=== PATIENT | female | born 1980 | race Caucasian/White ===

== ENCOUNTER 2017-01-29 02:10 | Emergency (ER) | payer OTHER ==
[2017-01-29] MEDS ORDERED: PANTOPRAZOLE SODIUM 40 MG in SODIUM CHLORIDE 100 ML IVPB ONE (02:23)
--- NOTE | 2017-01-29 02:23 | PDOC ---
[id number]: No Limitations - History of Present Illness Initial Comments: 01/29/17 02:31 The patient is a 36 year old female with no significant past medical history, who presents to the emergency department today for further evaluation of abdominal pain for one hour. The patient states that the pain developed while going to bed. The patient describes the pain as share and a 10/10 in severity. The patient states that the pain begins in her mid epigastric region and radiates to her left upper quadrant wrapping around to her back. The patient notes that she has experienced this pain once before but did not follow up with a doctor to have it evaluated. <Yasmani Murguia - Last Filed: 01/29/17 02:38> - General History Source: Patient <Bruno Sommer - Last Filed: 01/29/17 04:02> - General Chief Complaint: Pain, Acute Stated Complaint: ABD PAIN Time Seen by Provider: 01/29/17 02:20 Past History <Yasmani Murguia - Last Filed: 01/29/17 02:38> - Psycho/Social/Smoking Cessation Hx Smoking History: Never smoked Hx Alcohol Use: No Drug/Substance Use Hx: No Substance Use Type: None <Bruno Sommer - Last Filed: 01/29/17 04:02> - Past Medical History Allergies/Adverse Reactions: Allergies Allergy/AdvReac Type Severity Reaction Status Date / Time hydrocodone bitartrate AdvReac Vomiting Verified 01/29/17 02:22 [From Vicodin] ibuprofen [From Advil] AdvReac Swelling Verified 01/29/17 02:22 Home Medications: Ambulatory Orders Cholecalciferol (Vitamin D3) [Vitamin D3] 2,000 unit PO HS 12/22/13 Cyanocobalamin [Vitamin B12 -] 2,000 mcg PO HS 12/22/13 Ergocalciferol (Vitamin D2) [Vitamin D2] 50,000 unit PO WEEKLY 12/22/13 Levocetirizine Dihydrochloride [Xyzal] 5 mg PO HS 12/22/13 Pantoprazole Sodium [Protonix] 40 mg PO DAILY #30 tablet. 01/29/17 Review of Systems - Review of Systems Able to Perform ROS?: Yes Comments:: 01/29/17 02:32 CONSTITUTIONAL: Absent: fever, chills, diaphoresis, generalized weakness, malaise, loss of appetite HEENT: Absent: rhinorrhea, nasal congestion, throat pain, throat swelling, difficulty swallowing, mouth swelling, ear pain, eye pain, visual Changes CARDIOVASCULAR: Absent: chest pain, syncope, palpitations, irregular heart rate, lightheadedness , peripheral edema RESPIRATORY: Absent: cough, shortness of breath, dyspnea with exertion, orthopnea, wheezing, stridor, hemoptysis GASTROINTESTINAL: Present: Abdominal pain Absent: abdominal distension, nausea, vomiting, diarrhea, constipation, melena, hematochezia GENITOURINARY: Absent: dysuria, frequency, urgency, hesitancy, hematuria, flank pain, genital pain MUSCULOSKELETAL: Present: back pain Absent: arthralgia, joint swelling SKIN: Absent: rash, itching, pallor HEMATOLOGIC/IMMUNOLOGIC: Absent: easy bleeding, easy bruising, lymphadenopathy, frequent infections ENDOCRINE: Absent: unexplained weight gain, unexplained weight loss, heat intolerance, cold intolerance NEUROLOGIC: Absent: headache, focal weakness or paresthesias, dizziness, unsteady gait, seizure, mental status changes, bladder or bowel incontinence PSYCHIATRIC: Absent: anxiety, depression, suicidal or homicidal ideation, hallucinations. <Yasmani Murguia - Last Filed: 01/29/17 02:38> *Physical Exam - Vital Signs Last Vital Signs Temp Pulse Resp BP Pulse Ox 98.8 F 120 H 18 114/91 100 01/29/17 02:23 01/29/17 02:23 01/29/17 02:23 01/29/17 02:23 01/29/17 02:23 - Physical Exam Comments: 01/29/17 02:32 GENERAL: Well developed, well nourished. Awake and alert. (+) In moderate distress. HEENT: Normocephalic, atraumatic. PERRLA, EOMI. No conjunctival pallor. Sclera are non- icteric. Moist mucous membranes. Oropharynx is clear. NECK: Supple. Full ROM. No JVD. Carotid pulses 2+ and symmetric, without bruits. No thyromegaly. No lymphadenopathy. CARDIOVASCULAR: (+) Tachycardic,Regular rhythm. No murmurs, rubs, or gallops. Distal pulses are 2+ and symmetric. PULMONARY: No evidence of respiratory distress. Lungs clear to auscultation bilaterally. No wheezing, rales or rhonchi. ABDOMINAL: (+) Mild epigastric tenderness, some guarding Soft. Non-distended. No rebound. No organomegaly. Normoactive bowel sounds. MUSCULOSKELETAL Normal range of motion at all joints. No bony deformities or tenderness. No CVA tenderness. EXTREMITIES: No cyanosis. No clubbing. No edema. No calf tenderness. SKIN: Warm and dry. Normal capillary refill. No rashes. No jaundice. NEUROLOGICAL: Alert, awake, appropriate. Cranial nerves 2-12 intact. No deficits to light touch and temperature in face, upper extremities and lower extremities. No motor deficits in the in face, upper extremities and lower extremities. Normoreflexic in the upper and lower extremities. Normal speech. Toes are downgoing bilaterally. Gait is normal without ataxia. PSYCHIATRIC: Cooperative. Good eye contact. Appropriate mood and affect. <Yasmani Murguia - Last Filed: 01/29/17 02:38> Heart Score/ECG Review - ECG Impressions Comment:: 01/29/17 02:39 1. ECG Impression: Normal sinus rhythm. Possible left atrial enlargement. Borderline ECG. <Yasmani Murguia - Last Filed: 01/29/17 02:38> ED Treatment Course - LABORATORY CBC & Chemistry Diagram: 01/29/17 02:30 01/29/17 02:30 <Bruno Sommer - Last Filed: 01/29/17 04:02> Medical Decision Making - Medical Decision Making 01/29/17 03:44 Dr. Sommer: The scribe's documentation has been prepared under my direction and personally reviewed by me in its entirery. I confirm that the note above accurately reflects all work, treatment, procedures, and medical decision making performed by me. 01/29/17 04:01 Symptoms completely resolved. Pt labs are stable. PT will be discharged Rx Protonix. Follow up with her pcp <Bruno Sommer - Last Filed: 01/29/17 04:02> *DC/Admit/Observation/Transfer - Attestations Scribe Attestion: 01/29/17 02:32 Documentation prepared by Yasmani Murguia, acting as ophthalmic medical technologist for Bruno Sommer MD. <Yasmani Murguia - Last Filed: 01/29/17 02:38> - Discharge Dispostion Admit: No <Bruno Sommer - Last Filed: 01/29/17 04:02> Diagnosis at time of Disposition: GERD (gastroesophageal reflux disease) Qualifiers: Esophagitis presence: esophagitis presence not specified Qualified Code(s): K21.9 - Gastro-esophageal reflux disease without esophagitis - Discharge Dispostion Disposition: HOME Condition at time of disposition: Improved - Prescriptions Prescriptions: Pantoprazole Sodium [Protonix] 40 mg PO DAILY #30 tablet.dr - Referrals Referrals: Gil Joy MD [Primary Care Provider] - - Patient Instructions Printed Discharge Instructions: GERD Diet, DI for Gastroesophageal Reflux Disease (GERD)
[2017-01-29] MEDS ORDERED: SODIUM CHLORIDE 1,000 ML IV STA (02:24)
[2017-01-29 02:27] VITALS: BP 114/91; PULSE 120; TEMP 98.8; BMI 22.4
[2017-01-29] MEDS ORDERED: PANTOPRAZOLE SODIUM 40 MG VIAL ONE (02:36)
[2017-01-29 03:05] LABS: URINE APPEARANCE CLEAR; URINE BILIRUBIN NEGATIVE (NEGATIVE); URINE BLOOD NEGATIVE (NEGATIVE); URINE COLOR LTYELLOW; URINE GLUCOSE (UA) NEGATIVE (NEGATIVE); URINE KETONE NEGATIVE (NEGATIVE); URINE LEUK ESTERASE NEGATIVE (NEGATIVE); URINE NITRITE NEGATIVE (NEGATIVE); URINE PROTEIN NEGATIVE (NEGATIVE); URINE UROBILINOGEN NEGATIVE E.U./dl (0.2-1.0)
[2017-01-29 03:08] LABS: BASOPHIL 0.3 % (0-2.0); EOSINOPHIL 0.7 % (0-4.5); MCH 27.6 pg (25.7-33.7); MCHC 33.8 g/dl (32.0-36.0); MEAN CELL VOLUME 81.6 fl (80-96); MEAN PLT VOLUME 7.7 fl (7.5-11.1); NEUTROPHILS 90.5 % (42.8-82.8); PLATELET COUNT 249 K/MM3 (134-434); RDW 13.9 % (11.6-15.6); WHITE BLOOD COUNT 12.3 K/mm3 (4.0-10.0)
[2017-01-29 03:28] LABS: INR 1.12 (0.82-1.09); PROTHROMBIN TIME (PATIENT) 12.3 SEC (9.98-11.88)
[2017-01-29 03:35] LABS: ALBUMIN 4.2 g/dl (3.4-5.0); ANION GAP 13 (8-16); BILIRUBIN,TOTAL 0.5 mg/dL (0.2-1.0); CO2 25 mmol/L (21-32); CREATININE 0.8 mg/dL (0.55-1.02); GLUCOSE,RANDOM 97 mg/dL (74-106); MAGNESIUM 1.8 mg/dL (1.8-2.4); SGOT/AST 12 U/L (15-37); SGPT/ALT 13 U/L (12-78); TOT PROT 7.7 g/dl (6.4-8.2)
[2017-01-29 03:38] LABS: ALK PHOS 69 U/L (45-117); TROPONIN I < 0.02 ng/ml (0.00-0.05)
--- NOTE | 2017-01-29 13:58 | EKG ---
Test Reason : Blood Pressure : / mmHG Vent. Rate : 089 BPM Atrial Rate : 089 BPM P-R Int : 190 ms QRS Dur : 090 ms QT Int : 364 ms P-R-T Axes : 075 076 079 degrees QTc Int : 442 ms NORMAL SINUS RHYTHM POSSIBLE LEFT ATRIAL ENLARGEMENT BORDERLINE ECG NO PREVIOUS ECGS AVAILABLE Confirmed by ADEN DAUGHERTY, EVELYN ([id number]) on 01/29/2017 1:57:47 PM Referred By: Confirmed By:EVELYN SAMANIEGO MD
== END 2017-01-29 03:58 | disposition home or self-care (01) ==
LOC: JER 02:10
PROC: 3E033GC Introduction of Other Therapeutic Substance into Peripheral Vein, Percutaneous Approach (ICD-10-PCS; principal; 2017-01-29)
PROC: 3E0337Z Introduction of Electrolytic and Water Balance Substance into Peripheral Vein, Percutaneous Approach (ICD-10-PCS; 2017-01-29)
DX: K21.9 Gastro-esophageal reflux disease without esophagitis (principal)
CPT/HCPCS: 36415; 80053; 81003; 82550; 83690; 83735; 84484; 84703; 85025; 85610; 93005; 93010; 99283-25

== ENCOUNTER 2022-08-12 05:15 | Inpatient (IN) | payer OTHER ==
[2022-08-08 15:58] VITALS: BMI 24.0
[2022-08-12] MEDS ORDERED: TRANEXAMIC ACID 1000 MG/10 ML VIAL IVPUSH ONE (06:30)
[2022-08-12] MEDS ORDERED: ACETAMINOPHEN 1000 MG/100 ML BAG IVPB ONE (06:30)
[2022-08-12] MEDS ORDERED: GABAPENTIN 300 MG CAPSULE PO ONE (06:30)
[2022-08-12] MEDS ORDERED: PHENAZOPYRIDINE HCL 100 MG TABLET (FP) PO ONE (06:30)
[2022-08-12] MEDS ORDERED: CLINDAMYCIN IVPB 300 MG in DEXTROSE 5%-WATER - 50 ML IVPB ONE (06:30)
[2022-08-12] MEDS ORDERED: PHENAZOPYRIDINE HCL 100 MG TABLET (FP) ONE (06:35)
[2022-08-12] MEDS ORDERED: GABAPENTIN 300 MG CAPSULE ONE (06:35)
[2022-08-12] MEDS ORDERED: MIDAZOLAM HCL 2 MG/2 ML SINGLE DOSE VIAL ONE (07:26)
[2022-08-12] MEDS ORDERED: BUPIVACAINE HCL 50 ML ONE (07:27)
[2022-08-12] MEDS ORDERED: BUPIVACAINE LIPOSOME/PF (EXPAREL) 266 MG/20 ML VIAL ONE (07:28)
[2022-08-12] MEDS ORDERED: LIDOCAINE HCL 1%, 10 MG/ML (20ML VIAL) ONE (07:35)
[2022-08-12] MEDS ORDERED: PROPOFOL 20 ML ONE (07:55)
[2022-08-12] MEDS ORDERED: ROCURONIUM BROMIDE 50 MG/5 ML SYRINGE ONE (07:56)
[2022-08-12] MEDS ORDERED: ACETAMINOPHEN INJECTION 100 ML IVPB ONE ×3 (08:08→08:31)
[2022-08-12] MEDS ORDERED: ceFAZolin SODIUM 1 GM VIAL IVPB ONE (08:25)
[2022-08-12] MEDS ORDERED: NEOSTIGMINE METHYLSULFATE 0.5 MG/ML - 10 ML MDV ONE (09:13)
[2022-08-12] MEDS ORDERED: BISACODYL 5 MG TABLET.DR (FP) PO PRN (09:51)
[2022-08-12] MEDS ORDERED: oxyCODONE HCL 5 MG TABLET PO PRN ×2 (09:51)
[2022-08-12] MEDS ORDERED: DOCUSATE SODIUM 100 MG CAPSULE (FP) PO PRN (09:51)
[2022-08-12] MEDS ORDERED: diphenhydrAMINE HCL 25 MG CAPSULE (FP) PO PRN (10:01)
[2022-08-12] MEDS ORDERED: LACTATED RINGERS SOLUTION 1,000 ML IV SCH (10:15)
[2022-08-12] MEDS ORDERED: ONDANSETRON 4 MG/2 ML VIAL ONE (11:02)
[2022-08-12] MEDS: ONDANSETRON 4 MG/2 ML VIAL IVPUSH PRN ×2 (11:02→17:42)
[2022-08-12] MEDS: CEFAZOLIN 1 GM in DEXTROSE 5%-WATER - 50 ML IVPB SCH (15:57)
[2022-08-12] MEDS ORDERED: CEFAZOLIN 1 GM/D5W 1 GM/50 ML BAG IVPB SCH ×2 (16:00)
[2022-08-12] MEDS ORDERED: ACETAMINOPHEN 325 MG TABLET (FP) PO PRN (18:00)
[2022-08-12 20:13] LABS: HEMATOCRIT 30.8 % (32.4-45.2); HEMOGLOBIN 10.3 GM/dL (10.7-15.3); MCH 26.6 pg (25.7-33.7); MCHC 33.6 g/dl (32.0-36.0); MEAN PLT VOLUME 8.4 fl (7.5-11.1); PLATELET COUNT 241 10^3/uL (134-434); RBC 3.89 M/mm3 (3.60-5.2); RDW 14.2 % (11.6-15.6); WHITE BLOOD COUNT 9.4 K/mm3 (4.0-10.0)
[2022-08-12 20:31] LABS: BLOOD UREA NITROGEN 9.7 mg/dL (7-18); CALCIUM 8.5 mg/dL (8.5-10.1)
[2022-08-12 20:35] LABS: CREATININE 0.8 mg/dL (0.55-1.3)
[2022-08-12] MEDS: SIMETHICONE 80 MG TAB.CHEW (FP) PO PRN (21:24)
[2022-08-12] MEDS: LORATADINE 10 MG TABLET PO SCH (21:31)
[2022-08-13] MEDS: CEFAZOLIN 1 GM in DEXTROSE 5%-WATER - 50 ML IVPB SCH (00:20)
[2022-08-13 07:29] LABS: HEMOGLOBIN 9.2 GM/dL (10.7-15.3); MCHC 34.2 g/dl (32.0-36.0); MEAN PLT VOLUME 7.8 fl (7.5-11.1); PLATELET COUNT 217 10^3/uL (134-434); RBC 3.42 M/mm3 (3.60-5.2); RDW 14.5 % (11.6-15.6); WHITE BLOOD COUNT 7.7 K/mm3 (4.0-10.0)
[2022-08-13 07:52] LABS: CALCIUM 8.4 mg/dL (8.5-10.1)
[2022-08-13 07:53] LABS: BLOOD UREA NITROGEN 6.6 mg/dL (7-18)
[2022-08-13 07:56] LABS: CREATININE 0.7 mg/dL (0.55-1.3)
[2022-08-13] MEDS: DOCUSATE SODIUM 100 MG CAPSULE (FP) PO SCH ×3 (09:58→21:00)
[2022-08-13] MEDS: ACETAMINOPHEN 500 MG TABLET (FP) PO SCH ×3 (09:58→20:59)
[2022-08-13] MEDS: ENOXAPARIN NA (PORCINE) 40 MG/0.4 ML DISP.SYRIN SQ SCH (09:59)
[2022-08-13] MEDS: SIMETHICONE 80 MG TAB.CHEW (FP) PO PRN (20:59)
[2022-08-13] MEDS: LORATADINE 10 MG TABLET PO SCH (21:00)
[2022-08-14] MEDS: ACETAMINOPHEN 500 MG TABLET (FP) PO SCH ×2 (02:59→09:07)
[2022-08-14 08:56] VITALS: BP 140/89; PULSE 77; RESP 20; TEMP 98.6
[2022-08-14] MEDS: DOCUSATE SODIUM 100 MG CAPSULE (FP) PO SCH (09:09)
[2022-08-14] MEDS: ENOXAPARIN NA (PORCINE) 40 MG/0.4 ML DISP.SYRIN SQ SCH (09:09)
== END 2022-08-14 11:40 | disposition home or self-care (01) | DRG 743 ==
LOC: J2C 05:15 → J3W 12:03
PROVIDERS: ADMIT Obstetrics & Gynecology; ATTEND Obstetrics & Gynecology
PROC: 0UT70ZZ Resection of Bilateral Fallopian Tubes, Open Approach (ICD-10-PCS; 2022-08-12)
PROC: 0UB00ZZ Excision of Right Ovary, Open Approach (ICD-10-PCS; 2022-08-12)
PROC: 0UT90ZZ Resection of Uterus, Open Approach (ICD-10-PCS; principal; 2022-08-12 08:30)
DX: D25.9 Leiomyoma of uterus, unspecified (principal); N92.0 Excessive and frequent menstruation with regular cycle; N80.0 Endometriosis of uterus; N83.201 Unspecified ovarian cyst, right side
CPT/HCPCS: 36415; 80048; 81025; 85027; 86850; 86900; 86901; 86922; 88305-TC; 88307-TC; 94010; 94760